=== PATIENT | male | born 1955 | race Caucasian/White ===

== ENCOUNTER 2017-02-11 19:09 | Emergency (ER) | payer MEDICARE ==
[~2017-02-11] VITALS: Ht 182.9 cm; Wt 168.7 kg
[2017-02-11 19:40] VITALS: BP 159/79; PULSE 71; RESP 16; TEMP 98.3; O2SAT 100
[2017-02-11] MEDS ORDERED: BUTR20DI T-DERMAL (19:50)
[2017-02-11] MEDS ORDERED: GLIP10TA6 PO (19:50)
[2017-02-11] MEDS ORDERED: LEVO-171 PO (19:50)
[2017-02-11] MEDS ORDERED: CYMB60CA PO (19:50)
[2017-02-11] MEDS ORDERED: BUSP15TA PO (19:50)
[2017-02-11] MEDS ORDERED: HYDR-3580 PO (19:50)
[2017-02-11] MEDS ORDERED: LEVO150T7 PO (19:50)
[2017-02-11] MEDS ORDERED: PRIL20CA9 PO (19:51)
[2017-02-11] MEDS ORDERED: CLINDAMYCIN INJ 900 MG in SODIUM CHLORIDE 0.9% INJ 100 ML IV ONE (20:00)
[2017-02-11] MEDS ORDERED: KETOROLAC TROMETHAMINE 30 MG/ML (IVP) VIAL IV PUSH ONE (20:00)
[2017-02-11 20:25] VITALS: BP 241/118; PULSE 60; RESP 18; O2SAT 100
[2017-02-11 20:31] LABS: AUTOMATED NEUTROPHIL # 6.8 TH/MM3 (1.8-7.7); BASOPHIL # 0.4 TH/MM3 (0-0.2); BASOPHIL % 3.8 % (0.0-2.0); EOSINOPHIL # 0.7 TH/MM3 (0-0.4); EOSINOPHIL % 6.4 % (0.0-4.0); HEMATOCRIT 38.8 % (39.0-51.0); HEMO FLAGS DIFF FINAL; LYMPH % 19.4 % (9.0-44.0); MEAN CELL VOLUME 89.3 FL (80.0-100.0); MEAN CORPUSCULAR HEMOGLOBIN 30.8 PG (27.0-34.0); MEAN CORPUSCULAR HGB CONC 34.5 % (32.0-36.0); MONO % 4.2 % (0.0-8.0); NEUT % 66.2 % (16.0-70.0); PLATELET COUNT 216 TH/MM3 (150-450); RED BLOOD COUNT 4.34 MIL/MM3 (4.50-5.90); RED CELL DISTRIBUTION WIDTH 13.9 % (11.6-17.2); WHITE BLOOD COUNT 10.3 TH/MM3 (4.0-11.0)
[2017-02-11] MEDS: SODIUM CHLORIDE 0.9% FLUSH 10 ML FLUSH IVF PRN ×2 (20:35→23:03)
[2017-02-11 20:44] LABS: BICARBONATE 24.8 MEQ/L (21.0-32.0)
[2017-02-11] MEDS ORDERED: SODIUM CHLORID 0.9% 500 ML INJ 500 ML IV ONE (21:15)
[2017-02-11] MEDS ORDERED: CLIN1CAP5 PO (21:28)
[2017-02-11] MEDS ORDERED: PERC5TAB12 PO (21:28)
--- NOTE | 2017-02-11 21:36 | PD ---
HPI Chief Complaint: Edema Time Seen by Provider: 21:15 Travel History International Travel<30 days: No Contact w/Intl Traveler<30days: No Traveled to known affect area: No History of Present Illness HPI 61-year-old male with history of poor dentition presents to the emergency department with left facial swelling. Patient is diabetic. Patient states after eating a couple days ago started having severe pain in the left upper dentition. Patient last 2 days has noted swelling to the gingiva and now left face with some swelling extending to the left periorbital area. Patient has had no fever and the last 48-72 hours. Patient states blood sugars have been well-controlled. Patient does not complain of any referred ear neck jaw or throat pain. No shortness of breath or cough. There is been no stridor or hoarseness. Patient is allergic to penicillin. Patient rates his pain 8/10 in intensity. PFSH Past Medical History Narrative Medical Arthritis dyslipidemia diabetes diabetic neuropathy htn tonsillectomy; tobacco use; nursing notes reviewed Arthritis: Yes High Cholesterol: Yes Diabetes: Yes Patient Takes Glucophage: No Diminished Hearing: Yes ([place] LEFT EAR) GERD: Yes Hypertension: Yes Neurologic: Yes (NEUROPATHY BILAT LE) Integumentary: Yes (CELLULITES) Thyroid Disease: Yes Tetanus Vaccination: Unknown Influenza Vaccination: No ?: Not Past Surgical History Tonsillectomy: Yes Other Surgery: Yes (ANAL FISSURE REPAIR) Social History Alcohol Use: Yes (occ.) Tobacco Use: Yes (1ppd) Substance Use: No Allergies-Medications (Allergen,Severity, Reaction): Coded Allergies: Morphine (Verified Allergy, Severe, RASH, 02/11/17) Penicillin (Verified Allergy, Severe, hives, 02/11/17) Reported Meds & Prescriptions Reported Meds & Active Scripts Active Percocet (Oxycodone-Acetaminophen) 5-325 mg Tab 1 Tab PO Q6H PRN Clindamycin (Clindamycin HCl) 150 Mg Cap 300 Mg PO Q6H 7 Days Reported Prilosec (Omeprazole) 20 Mg Cap 20 Mg PO DAILY Hydrocodone-Acetaminophen 7.5-325 mg Tab 1 Tab PO TID PRN Butrans Patch 168 HR (Buprenorphine Patch 168 HR) 20 Mcg/Hr Patch 1 Patch T- DERMAL Q7D Buspirone (Buspirone HCl) 15 Mg Tab 15 Mg PO TID Levothyroxine (Levothyroxine Sodium) 150 Mcg Tab 150 Mcg PO BID Levothyroxine (Levothyroxine Sodium) 300 Mcg Tab 300 Mcg PO DAILY Glipizide 10 Mg Tab 10 Mg PO BIDAC Take 30 minutes before a meal Cymbalta DR (Duloxetine HCl) 60 Mg Capdr 120 Mg PO DAILY Review of Systems Except as stated in HPI: all other systems reviewed are Neg General / Constitutional: Positive: Fever (one week ago none now), No: Chills HENT: Positive: Dental Difficulties, No: Headaches, Congestion, Neck Stiffness , Neck Pain Cardiovascular: No: Chest Pain or Discomfort Respiratory: No: Shortness of Breath Gastrointestinal: No: Nausea, Vomiting Genitourinary: No: Dysuria, Flank Pain Musculoskeletal: No: Myalgias, Arthralgias Skin: No Rash Neurologic: No: Weakness Psychiatric: No: Anxiety Hematologic/Lymphatic: No: Lymph Node Enlargement Physical Exam Narrative GENERAL: Well-developed well-nourished male in no acute distress no respiratory distress SKIN: Warm and dry. HEAD: Normocephalic. EYES: No scleral icterus. No injection or drainage. ENT: Mucous members moist airway is patent no trismus poor dentition throughout tenderness to outpatient of the gingiva associated with #8. #12 dentition with some induration nonfluctuant. Bilateral tympanic membranes no redness no dullness to loss of landmarks no perforation. Mild left facial edema with some lower lid edema no increased warmth or erythema. NECK: Supple, trachea midline. No JVD or lymphadenopathy. CARDIOVASCULAR: Regular rate and rhythm without murmurs, gallops, or rubs. RESPIRATORY: Breath sounds equal bilaterally. No accessory muscle use. GASTROINTESTINAL: Abdomen soft, non-tender, nondistended. MUSCULOSKELETAL: No cyanosis, or edema. BACK: Nontender without obvious deformity. No CVA tenderness. Data Data Last Documented VS Vital Signs Date Time Temp Pulse Resp B/P Pulse Ox O2 Delivery O2 Flow Rate FiO2 02/11/17 21:33 18 02/11/17 19:53 70 02/11/17 19:40 98.3 159/79 100 Orders Basic Metabolic Panel (Bmp) (02/11/17 19:58) Complete Blood Count With Diff (02/11/17 19:58) Iv Access Insert/Monitor (02/11/17 19:58) Clindamycin Inj (Cleocin Inj) (02/11/17 20:00) Sodium Chloride 0.9% Flush (Ns Flush) (02/11/17 20:00) Ketorolac Inj (Toradol Inj) (02/11/17 20:00) Sodium Chlorid 0.9% 500 Ml Inj (Ns 500 M (02/11/17 21:15) Morphine Inj (Morphine Inj) (02/11/17 22:00) Diphenhydramine Inj (Benadryl Inj) (02/11/17 23:00) Famotidine Inj (Pepcid Inj) (02/11/17 23:00) Labs Laboratory Tests Test 02/11/17 20:15 White Blood Count 10.3 TH/MM3 Red Blood Count 4.34 MIL/MM3 Hemoglobin 13.4 GM/DL Hematocrit 38.8 % Mean Corpuscular Volume 89.3 FL Mean Corpuscular Hemoglobin 30.8 PG Mean Corpuscular Hemoglobin 34.5 % Concent Red Cell Distribution Width 13.9 % Platelet Count 216 TH/MM3 Mean Platelet Volume 8.4 FL Neutrophils (%) (Auto) 66.2 % Lymphocytes (%) (Auto) 19.4 % Monocytes (%) (Auto) 4.2 % Eosinophils (%) (Auto) 6.4 % Basophils (%) (Auto) 3.8 % Neutrophils # (Auto) 6.8 TH/MM3 Lymphocytes # (Auto) 2.0 TH/MM3 Monocytes # (Auto) 0.4 TH/MM3 Eosinophils # (Auto) 0.7 TH/MM3 Basophils # (Auto) 0.4 TH/MM3 CBC Comment DIFF FINAL Differential Comment Sodium Level 140 MEQ/L Potassium Level 4.0 MEQ/L Chloride Level 104 MEQ/L Carbon Dioxide Level 24.8 MEQ/L Anion Gap 11 MEQ/L Blood Urea Nitrogen 19 MG/DL Creatinine 1.50 MG/DL Estimat Glomerular Filtration 48 ML/MIN Rate Random Glucose 142 MG/DL Calcium Level 8.3 MG/DL MDM Medical Decision Making Medical Screen Exam Complete: Yes Emergency Medical Condition: Yes Medical Record Reviewed: Yes Interpretation(s) CBC & BMP Diagram 02/11/17 20:15 Vital Signs Date Time Temp Pulse Resp B/P Pulse Ox O2 Delivery O2 Flow Rate FiO2 02/11/17 19:53 70 16 02/11/17 19:40 98.3 71 16 159/79 100 Differential Diagnosis dentalgia, apical abscess, cellulitis, poorly controlled diabetes; no findings for orbital or periorbital cellulitis Narrative Course 61-year-old male with 2 days of dental pain and now with left cheek facial swelling. Patient has not followed up with dentist. Patient states one week ago had fever but no fever in the last 2-3 days. Patient rates pain as severe. Patient is diabetic and blood sugars have been well-controlled. Patient started on IV clindamycin and given Toradol as a one-time dose IV basic labs ordered Patient with renal insufficiency but identified to have well-controlled random serum glucose with normal bicarbonate and anion gap. At this time patient is stable for outpatient management will be given a small fluid bolus for gentle hydration. Patient is encouraged to follow-up with his primary care provider as well as call and make an appointment with dentist. Patient complain of ongoing pain after Toradol ordered morphine sulfate 4 mg IV Prior to patient being discharged while nurse administering morphine sulfate patient complained of burning and itching proximal to the injection site with localized erythema no urticaria, no dyspnea, no wheezing no lip tongue or throat swelling no stridor and no hoarseness --- did not receive full dose of morphine. Morphine injection stopped medication otherwise canceled administered Benadryl 25 mg IV and Pepcid 20 mg IV. Diagnosis Primary Impression: Dental abscess Additional Impressions: Renal insufficiency Diabetes Allergic reaction caused by a drug Qualified Code: T78.40XA - Allergic reaction caused by a drug, initial encounter Referrals: Dentist call for appointment Primary Care Physician 2 days Patient Instructions: General Instructions Additional Instructions: Increase fluid hydration Complete antibiotic Take acetaminophen/Tylenol every 4 hours as needed for fever 100.4F or greater May use ibuprofen/Advil/Motrin 800 mg as often as every 8 hours as needed for fever 100.4F or greater or for pain associated inflammation however avoid high use ibuprofen for greater than 2-3 days Follow-up with primary care physician call office in a.m. to schedule follow-up appointment Follow-up with dentist call office in a.m. to schedule follow-up appointment Return to the emergency for for pain fever vomiting or any concerns Takes Zantac 150 twice daily for 7 days Take Benadryl 25 mg to 50 mg every 4-6 hours as needed for itching or hives Med/Other Pt SpecificInfo: Prescription(s) given Scripts Oxycodone-Acetaminophen (Percocet)5-325 mg Tab1 Tab PO Q6H PRN (PAIN) #6 TAB Ref 0 Prov:Lorin Sharpe MD 02/11/17 Clindamycin 150 Mg [id number] Mg PO Q6H 7 Days Ref 0 Prov:Lorin Sharpe MD 02/11/17 Disposition: 01 DISCHARGE HOME Condition: Stable Lorin Sharpe MD February 11, 2017 21:36
[2017-02-11] MEDS ORDERED: MORPHINE SULFATE 4 MG/ML INJ IV PUSH ONE (22:00)
[2017-02-11] MEDS ORDERED: FAMOTIDINE 20 MG/2 ML VIAL IV PUSH ONE (23:00)
[2017-02-11] MEDS ORDERED: diphenhydrAMINE HCL 50 MG/ML VIAL IV PUSH ONE (23:00)
[2017-02-11 23:25] VITALS: BP 231/93; PULSE 62; RESP 18; O2SAT 100
[2017-02-11 23:40] VITALS: BP 215/92; PULSE 62; RESP 18; O2SAT 100
[2017-02-11] MEDS ORDERED: LISI10TA3 PO (23:46)
[2017-02-11] MEDS ORDERED: HYDR12.57 PO (23:46)
[2017-02-12] MEDS ORDERED: cloNIDine HCL 0.1 MG TAB PO ONE
[2017-02-12 00:35] VITALS: BP 169/74; PULSE 68; RESP 18; O2SAT 100
== END 2017-02-12 00:50 | disposition home or self-care (01) ==
LOC: PHED 19:09
DX: K04.7 Periapical abscess without sinus (principal); N28.9 Disorder of kidney and ureter, unspecified; T50.905A Adverse effect of unspecified drugs, medicaments and biological substances, initial encounter; E11.42 Type 2 diabetes mellitus with diabetic polyneuropathy; Z79.84 Long term (current) use of oral hypoglycemic drugs
CPT/HCPCS: 80048; 85025; 96361; 96365; 96375; 99283; J1200; J1885; J2270; J7040